=== PATIENT | female | born 1970 | race Caucasian/White ===

== ENCOUNTER → 2019-12-10 | Day surgery (SDC) | payer OTHER ==
[~2019-12-10] MED LIST: AMIT10TA PO; DULO60CA6 PO; IV RINGERS SOLUTION,LACTATED 1,000 ML IV SCH; LEVO2.5S4 PO; ONDANSETRON PF 4 MG/2 ML VIAL. IV PRN; PROPOFOL 10,000 MCG/ML (20ML) VIAL IV ONE; TOPI50TA38 PO; VALA500T5 PO
[2019-12-10 14:11] VITALS: BP 129/88
--- NOTE | 2019-12-12 16:06 | PATHOLOGY ---
[facility] Accession Number: [id number] . 01 Material submitted: . stomach - RANDOM GASTRIC BIOPSY . 02 Diagnosis: Gastric body and gastric antral mucosa, random gastric biopsies: - Mild chronic gastritis. [facility] 12/12/2019 0942 Local . 02 Comment: Sections of the random gastric biopsy reveal segments of gastric body and gastric antral mucosa, which show congestion and mild chronic inflammation. A properly controlled immunoperoxidase stain for Helicobacter is negative for Helicobacter organisms. There is no evidence of malignancy. (JPM/db; 12/12/2019) . Special stain performed: Immunoperoxidase stain for Helicobacter . 02 Electronically signed: . Lalit Rivera MD, Pathologist NPI- [id number] . 01 Gross description: . The specimen is received in formalin, labeled "Ready, [place], random gastric biopsy" and consists of multiple fragments of falcon tissue and 0.8 x 0.4 x 0.2 cm in aggregate which are entirely submitted in A1. ([facility]; 12/11/2019) JFQ/JFQ 12/11/2019 1652 Local . 02 Pathologist provided ICD-10: K29.50 . 02 CPT . 688454, [id number] Specimen Comment: A courtesy copy of this report has been sent to [phone] Specimen Comment: [id number] Specimen Comment: Report sent to / DR THOMPSON Performed at: 01 [facility] [address], [place] [id number] MD Raghav Drew MD Phone: [phone] Performed at: 02 [facility] [address] [place], [place] [id number] MD Lalit Rivera MD Phone: [phone]
== END | disposition home or self-care (01) ==
LOC: SURG 11:52
PROVIDERS: ATTEND Internal Medicine Gastroenterology
DX: K92.1 Melena (principal); K63.89 Other specified diseases of intestine; K64.8 Other hemorrhoids; K57.30 Diverticulosis of large intestine without perforation or abscess without bleeding; K29.50 Unspecified chronic gastritis without bleeding; K21.9 Gastro-esophageal reflux disease without esophagitis; Z86.010 Personal history of colon polyps; Z88.1 Allergy status to other antibiotic agents; Z88.6 Allergy status to analgesic agent
CPT/HCPCS: 43239; 45378; J2704; J7120; U0003-CS